=== PATIENT | male | born 1960 | race Caucasian/White ===

== ENCOUNTER 2017-09-18 14:55 | Inpatient (IN) | payer OTHER, SELFPAY ==
[2017-09-18] VITALS (9 sets, daily range): BP systolic 139–164; BP diastolic 90–103; PULSE 53–64; RESP 13–18; TEMP 36.7–36.9; O2SAT 93–98; BMI 25.7; BMI 25.0; BMI 25.1
--- NOTE | 2017-09-18 15:02 | EKG12_ITS ---
Test Reason : CP Blood Pressure : / mmHG Vent. Rate : 055 BPM Atrial Rate : 055 BPM P-R Int : 174 ms QRS Dur : 102 ms QT Int : 512 ms P-R-T Axes : 051 010 072 degrees QTc Int : 489 ms Sinus bradycardia Prolonged QT Abnormal ECG Confirmed by CHELO CAPPS, UMA ([id number]), society editor PARISH GUERRA ([id number] on 09/22/2017 2:24:02 PM Referred By: CHAVEZ Confirmed By:UMA WHITNEY MD
--- NOTE | 2017-09-18 15:19 | CT_ITS ---
STUDY: CT BRAIN WITHOUT CONTRAST REASON FOR EXAM: Male, 57 years old. Left facial droop. RADIATION DOSAGE (If Supplied By Facility): CTDIvol = ( 44.99 ) mGy, DLP = ( 796.11 ) mGycm TECHNIQUE: Transaxial CT imaging of the brain was performed without administration of intravenous contrast material. Individualized dose optimization techniques were used for this CT. COMPARISON: None. FINDINGS: Normal soft tissue structures. Normal calvarium. Normal size ventricles and extra-axial spaces for the patient's age. Normal white matter tracts of the cerebral hemispheres. Normal basal ganglia and thalami. Normal brainstem. Normal cerebellum. There is no intracranial hemorrhage. There are no findings of an acute ischemic infarction. Normal visualized paranasal sinuses. CT/Brain/Head without Contrast IMPRESSION: Normal unenhanced CT scan of the brain. Electronically Signed: Zhen James MD at 17:19 EST , Service support ,
--- NOTE | 2017-09-18 15:20 | RAD_ITS ---
STUDY: X-RAY CHEST REASON FOR EXAM: Male, 57 years old. Left facial droop. TECHNIQUE: Single frontal view of the chest. COMPARISON: None. FINDINGS: The lungs are clear and expanded. There is no demonstrated pleural abnormality. Normal size heart. Normal mediastinum and rahul. Normal visualized pulmonary arteries. Normal visualized aortic arch and descending thoracic aorta. Normal visualized thoracic spine. Normal visualized ribs, clavicles, and shoulders. There is no demonstrated abnormality of the visualized soft tissue structures of the upper abdomen. RAD/Chest 1 View (Portable) IMPRESSION: Normal x-ray examination of the chest. Electronically Signed: Zhen James MD at 16:12 EST , Service support ,
[2017-09-18 15:26] LABS: Bedside Glucose 76 mg/dL (70-110)
[2017-09-18 15:28] LABS: Absolute Lymphocyte Count 1.41 X10^3/ul (0.83-4.51); Absolute Neutrophil Count 6.2 X10^3/uL (2.0-7.7); Basophil# 0.08 X10^3/uL; Basophil% 0.9 % (0-1); Eosinophil# 0.33 X10^3/uL; Eosinophils% 3.8 % (0-5); Hematocrit 42.6 % (40-54); Hemoglobin 14.9 g/dl (13.0-16.5); Lymphocyte # 1.41 X10^3/ul (4.0); Lymphocyte % 16.4 % (19-41); Mean Corpuscular Hgb 30.8 pg (27.0-32.0); Mean Corpuscular Volume 88.2 fL (80-94); Mean Platelet Vol. 9.8 fl (6.2-12.0); Monocyte# 0.56 X10^3/uL; Monocyte% 6.5 % (0-10); Neutrophil # 6.18 X10^3/uL (2.7-7.7); Neutrophil % 71.9 % (47-70); Platelet Count 335 K/mm3 (150-450); RBC Distribution Width CV 13.1 % (11.6-14.6); RBC Distribution Width SD 41.9 fl (35.1-43.9); Red Blood Count 4.83 M/mm3 (4.6-6.2); White Blood Count 8.6 K/mm3 (4.4-11.0)
[2017-09-18 15:30] LABS: POSITIVE COUNT NO; POSITIVE DIFFERENTIAL NO; POSITIVE MORPHOLOGY NO
[2017-09-18 15:37] LABS: International Normalized Ratio 1.1; Prothrombin Time (Protime)PT. 13.4 SECONDS (11.7-14.9)
[2017-09-18 15:38] LABS: Partial Thromboplast Time 28.1 Seconds (24.1-36.2)
[2017-09-18 15:46] LABS: Anion Gap 6 (5-15); BUN 23 mg/dL (7-18); BUN/Creat Ratio 18.9 RATIO (10-20); Calcium,Total 8.5 mg/dL (8.5-10.1); Chloride 104 mmol/L (98-107); Creatinine, Serum 1.22 mg/dL (0.70-1.30); EST Glomerular Filtration Rate 65 mL/min (>60); Est Glom Filt Rate - Afr Amer 78 mL/min (>60); Estimated Creatinine Clearance 73.68 ml/min; Glucose 77 mg/dL (74-106); Potassium 3.7 mmol/L (3.5-5.1); Sodium Level 139 mmol/L (136-145)
--- NOTE | 2017-09-18 16:05 | ED.DCSUM_ITS ---
- ER Visit Summary Date of Service: 09/18/17 Chief Complaint: [] Concern for left facial droop walking leaning to the left History of Present Illness: The patient is a 57 M [] chronic hip pain reports he basically went to bed feeling fine woke a few hours later than normal and the family noticed she had left facial droop stuttering speech and kept falling to the left when he walked. This was noticed around 11 AM he was brought to the emergency department around 3 PM his facial droop and his speech symptoms have resolved his listing to the left is also markedly improved the patient denies headache no 6 paresthesias chest pain abdominal pain he has no history of MO PE DVT stroke or seizure he does take Ultram for chronic left hip pain Physical Examination: [] L signs are within normal range she has no obvious facial droop his speech is clear and stable no aphasia no dysarthria his lungs are clear heart tones are normal abdomen soft nontender upper lower extreme is normal he has normal motor normal sensory neural cerebellar function his vision is normal he can stand and walk with no obvious ataxia but he feels as if he is moving toward the left when he walks his NIH is 0 on arrival Test Results: [] Emergency Department Course and Treatment: [] CT labs EKG are generally unremarkable see those reports he remained stable here his NIH remains 0 The above given the difficulty with speech stuttering nature, facial droop the possibility of TIA certainly with the family they understand the need for admission further management, with the hospitalist will admit for further management Treatment Plan: [] Disposition: [] Admit stable Impression: [] Facial droop slurry speech trouble walking concern for TIA This note was generated with [employer] dictation software. It may contain incorrect words, spelling, and punctuation that were not noted in review of the chart prior to signing ED Disposition - Plan for ED Patient: Chief Complaint: Neuro S/Sx Referrals: Juan Miguel Howard MD [Primary Care Provider] -
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
--- NOTE | 2017-09-18 18:47 | ECHOD_ITS ---
Reason For Study: TIA/CVA Procedure This was a 2D Doppler, Color Flow transthoracic echocardiogram. Exam performed portable in patient room. Left Ventricle Normal size and thickness. The estimated ejection fraction is 65 %. Stage 1 diastolic dysfunction. No regional wall motion abnormalities noted. Right Ventricle Normal size and thickness. Normal systolic function. Atria Normal left atrium. Normal right atrium. Normal atrial septum. Saline contrast study demonstrates trivial right to left interatrial shunt. Mitral Valve The mitral valve is structurally normal. No prolapse or stenosis seen. Trivial mitral valve insufficiency. Tricuspid Valve Normal tricuspid valve. Trivial tricuspid valve insufficiency. Right ventricular systolic pressure estimated to be 28 mmHg. Aortic Valve Normal aortic valve. Trisinus/trileaflet aortic valve. Trivial aortic valve insufficiency. Pulmonic Valve Normal pulmonic valve. Great Vessels Normal aortic root. Normal arch. Normal inferior vena cava. Inferior vena cava collapse with sniff. Pericardium/Pleural No pericardial effusion. Medication Performed a rapid injection of agitated mix of 9 cc saline and 1cc air to assess for atrial septal defect. MMode/2D Measurements & Calculations LVIDd: 6.1 cm IVSd: 1.1 cm Ao root diam: 3.4 cm LVIDs: 4.5 cm LVPWd: 1.1 cm LA dimension: 4.1 cm RVDd: 3.1 cm FS: 25.8 % LAV(MOD-bp): 53.7 ml LAV(MOD-bp) Indexed: 25.5 ml/m2 LA A4 area: 14.1 cm2 RA A4 area: 15.1 cm2 LAV(MOD-sp2): 66.8 ml LAV(MOD-sp4): 36.3 ml Doppler Measurements & Calculations MV E max gualberto: 65.7 cm/sec Lat Peak E' Gualberto: 8.6 cm/sec Med Peak E' Gualberto: 5.6 cm/sec MV A max gualberto: 71.3 cm/sec E/E' lat: 7.6 E/E' med: 11.7 MV E/A: 0.92 Ao V2 max: 137.8 cm/sec LV V1 max: 92.1 cm/sec PA V2 max: 100.2 cm/sec Ao max P.6 mmHg LV V1 max P.4 mmHg Ao V2 mean: 96.9 cm/sec Ao mean P.1 mmHg Ao V2 VTI: 27.3 cm TR max gualberto: 240.8 cm/sec TR max P.2 mmHg Interpretation Summary The estimated ejection fraction is 65 %. Trivial tricuspid valve insufficiency. Trivial mitral valve insufficiency. Stage 1 diastolic dysfunction. Right ventricular systolic pressure estimated to be 28 mmHg. Saline contrast study demonstrates trivial right to left interatrial shunt. There is no comparison study available. Ordering Physician: aDvid Osborne Referring Physician: Juan Miguel Howard Performed By: Cassidy Santana RDCS, RVT
--- NOTE | 2017-09-18 18:47 | MRI_ITS ---
STUDY: MRI BRAIN WITHOUT CONTRAST REASON FOR EXAM: Male, 57 years old. Left-sided facial droop. TECHNIQUE: Standardized multiplanar fat and water weighted pulse sequences were obtained. COMPARISON: CT of the head dated September 08, 2017. FINDINGS: There is mild cerebral atrophy with widening of the extra-axial spaces and ventricular dilatation. There are multiple white matter hyperintensities, distributed throughout the deep white matter tracts of the cerebral hemispheres, consistent with moderate chronic white matter ischemic changes. There is a well-circumscribed focus of restricted diffusion within the anterior medial right thalamus consistent with acute infarct. Normal T2* images of the brain without demonstrated susceptibility artifact. There is no demonstrated hemosiderin stain. There are prominent perivascular spaces (PVS) involving the basal ganglia. There is abnormal signal within the medial right thalamus corresponding to area of acute infarct. The left thalamus has a normal appearance. There is no extra-axial fluid accumulation. Normal flow voids within the major intracranial circulation suggesting patency by spin echo criteria. Normal sella turcica, pituitary gland, infundibular stalk, optic chiasm and hypothalamus. Normal tectal plate and pineal gland. Normal midbrain, meryl and medulla. There are mild involutional changes of the cerebellum. Normal basal cisterns. There is moderate chronic otomastoiditis of the left temporal bone. Normal bilateral internal auditory canals. No demonstrated orbital abnormality, within the constraints of a routine brain study. There is extensive bilateral maxillary sinus disease with what appears to be both chronic and acute changes. Air-fluid levels appear to be within the maxillary sinuses. There is also opacification of most of the ethmoid sinuses. There is moderate mucoperiosteal thickening within the right frontal sinus and mild mucoperiosteal thickening in the left frontal sinus. There is mucosal thickening within bilateral sphenoid sinuses. Normal calvarium and skull base. Normal visualized soft tissue structures. There are degenerative changes of the anterior atlantoaxial articulation. MRI/Brain without Contrast IMPRESSION: 1. Involutional changes of the brain, as described above. 2. Acute infarct involving the right thalamus. 3. Extensive leon paranasal sinus disease. N.B. : The above information has been verbally conveyed by Jina Willson MD to Dr. Osborne, Covering Physician, on 09/19/2017 10:31:05 (ET). Electronically Signed: Jina Willson MD at 10:24 EST , Service support , N.B. : The above information has been verbally conveyed by Jina Wilslon MD to Dr. Osborne, Covering Physician, on 09/19/2017 10:31:05 (ET).
[2017-09-18 19:25] LABS: Thyroid Stim Hormone (TSH) 0.35 uIU/mL (0.358-3.74)
[2017-09-18 19:46] LABS: Alcohol, Blood (Medical)-Serum < 3.0 mg/dL
[2017-09-18] MEDS: Clopidogrel Bisulfate 75 MG Tablet PO (20:47)
[2017-09-18] MEDS: 0.9% Normal Saline 1,000 ML 100 ML IV (20:47)
[2017-09-18] MEDS: Atorvastatin Calcium 80 MG Tablet PO (21:21)
[2017-09-18] MEDS: Famotidine 20 MG Tablet PO (21:21)
[2017-09-18] MEDS: Acetylcysteine (Mucomyst Oral) 20% SOLN 1200 MG PO (21:22)
[2017-09-19] VITALS (12 sets, daily range): BP systolic 140–177; BP diastolic 82–110; PULSE 55–66; RESP 16–18; TEMP 36.4–36.8; O2SAT 96–100; BMI 25.0
[2017-09-19 00:16] LABS: Bedside Glucose 128 mg/dL (70-110)
[2017-09-19] MEDS: 0.9% Normal Saline 1,000 ML 100 ML IV (06:05)
[2017-09-19 06:16] LABS: Bedside Glucose 82 mg/dL (70-110)
[2017-09-19 07:17] LABS: Cholesterol 138 mg/dL (200); High Density Lipoprotein 30 mg/dL; T4 Free Direct 1.09 ng/dL (0.76-1.46); Thyroid Stim Hormone (TSH) 0.81 uIU/mL (0.358-3.74); Triglycerides 74 mg/dL; Very Low Density Lipoprotein 15 mg/dL (5-40)
[2017-09-19] MEDS: Acetylcysteine (Mucomyst Oral) 20% SOLN 1200 MG PO ×2 (08:25→21:05)
[2017-09-19] MEDS: Famotidine 20 MG Tablet PO ×2 (08:25→21:05)
[2017-09-19] MEDS: Clopidogrel Bisulfate 75 MG Tablet PO (08:25)
[2017-09-19 08:59] LABS: Amphetamine Urine VISTA NEGATIVE (<1000 ng/mL); Barbiturate Urine VISTA NEGATIVE (< 200 ng/mL); Benzodiazepine Urine VISTA NEGATIVE (< 200 ng/mL); Cocaine Urine VISTA NEGATIVE (< 300 ng/mL); Ecstacy Urine VISTA NEGATIVE (< 500 ng/mL); Methadone Urine VISTA NEGATIVE (< 300 ng/mL); PCP Urine VISTA NEGATIVE (< 25 ng/mL); THC Urine VISTA NEGATIVE (< 50 ng/mL); Vista UDS pH Range 6
--- NOTE | 2017-09-19 12:53 | PN_ITS ---
Patient Problems: Active and Suspected Problems TIA (transient ischemic attack) (Acute) Subjective: Seen and examined in the morning, Radiologist called me for acute right thalamic infarct about 1 cm in size. MRI of brain and CT angiogram discussed with the neurologist Dr. Brown. 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 Discussed with the business support specialist Dr. Valdez. Vitals/I&O's: Vital Signs Temp Pulse Resp BP Pulse Ox 98.1 F 65 18 153/88 H 98 09/19/17 12:05 09/19/17 12:05 09/19/17 12:05 09/19/17 12:05 09/19/17 12:05 Oxygen Delivery Method Room Air Weight: 190 lb Body Mass Index (BMI) 25.0 Intake and Output for Last 24 Hours 09/17/17 09/18/17 09/19/17 23:59 23:59 23:59 Intake Total 2158 Balance 2158 General: Alert, Oriented x3, Cooperative HEENT: Atraumatic, PERRLA, EOMI, Normocephalic Neck: Supple, No JVD, Negative Carotid Bruits Lungs: Clear to auscultation, Normal air movement, No rhonchi, No wheeze Cardiovascular: Regular Rhythm, Normal S1, Normal S2, No murmurs, Bradycardic - Sinus bradycardia, heart rate varies between 38-50/min. Abdomen: Bowel Sounds Present, Soft, Non Tender Extremities: No edema, Capillary Refill Less than 3 Seconds Skin: No rashes, No breakdown Musculoskeletal: No Tenderness to Palpation of Joints or Extremities Neurological: Cranial nerves II-XII grossly intact Psych/Mental Status: Normal Affect, Appropriate Laboratory Results 09/18/17 18:55: Troponin I < 0.02, TSH 0.35 L 09/18/17 18:55: Ethyl Alcohol < 3.0 09/19/17 00:03: POC Glucose 128 H 09/19/17 05:45: Triglycerides 74, Cholesterol 138, LDL Cholesterol 93, VLDL Cholesterol 15, HDL Cholesterol 30 L, TSH 0.81, Free T4 1.09 09/19/17 06:03: POC Glucose 82 Current Medications Acetaminophen (Tylenol) 650 mg PO Q4H PRN PRN PRN Reason: Headache/Temp>99F Acetaminophen (Tylenol) 650 mg RECTAL Q4H PRN PRN PRN Reason: Headache/Temp>99F Acetylcysteine (Mucomyst) 1,200 mg PO BID [facility] Stop: 09/20/17 10:01 Last Admin: 09/19/17 08:25 Dose: 1,200 mg Atorvastatin Calcium (Lipitor) 80 mg PO QHS [facility] Last Admin: 09/18/17 21:21 Dose: 80 mg Clopidogrel Bisulfate (Plavix) 75 mg PO DAILY [facility] Last Admin: 09/19/17 08:25 Dose: 75 mg Famotidine (Pepcid) 20 mg PO BID [facility] Last Admin: 09/19/17 08:25 Dose: 20 mg Heparin Sodium (Porcine) (Heparin Na) 5,000 unit SC BID [facility] Last Admin: 09/19/17 08:23 Dose: Not Given Sodium Chloride () 1,000 mls @ 100 mls/hr IV .Q10H [facility] Last Admin: 09/19/17 06:05 Dose: 100 mls/hr Sodium Chloride () 5 - 30 ml IV UD PRN PRN Reason: SALINE FLUSH Assessment/Plan Active and Suspected Problems TIA (transient ischemic attack) (Acute) The patient is a 57 year old M with no prior history of TIA/stroke, chronic right hip pain came to ER with sudden onset of left-sided facial droop, drifting to left side and slurred speech. 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 There is mild left facial droop. This happened around 11 AM and by this time he came to ER around 3 PM symptoms were resolved. Patient wants to go home. Patient also had transient drifting of his eyes towards left side that is not resolved. In ER NIH stroke scale 0. CT head does not show any acute change. Patient wants to go home. EKG shows normal sinus rhythm with slight prolonged QTC 49 ms. Previous EKG on May 2001 shows sinus bradycardia at 51 bpm. Blood pressure is elevated in the ER; 163/96 mmHg most rapidly undiagnosed hypertension, not on antihypertensive medication. 1. Acute right thalamic ischemic infarct: The patient is being admitted on the PCU floor. Patient's neurological he is a stable. His symptoms as mentioned above resolved. No headache. Brain MRI shows acute right thalamic infarct about 1 cm in size. Involutional changes of the brain with mild cerebral atrophy with widening of extra-axial spaces and ventricular dilatation. Moderate chronic white matter ischemic changes. Discussed with the neurologist Dr. Brown who agrees with the right thalamic ischemic infarct. CT angiogram of head and neck reported as no CT evidence of hemodynamically stenosis thrombosis or aneurysm. Dr. Brown feels that there is mild stenosis of right P1 segment. Continue on on stroke protocol with neuro checks , aspirin, statin, BP and glucose control as per stroke guidelines, PT, OT and speech/swallow evaluation. 2D echo tomorrow morning. Fasting lipid profile shows total cholesterol 138, LDL 93 and HDL 30. 2. Sinus bradycardia with sinus pauses: There were 2 missed heartbeat since yesterday. There is no compensatory pause. Discussed with the business support specialist Dr. Valdez who suggested YOAN tomorrow a.m. Keep the patient n.p.o after midnight. Cardiology consult ordered. Patient might need to be discharged on 30 day event monitor. Discussed with Dr. Koroma and said Dr. Haney will be doing YOAN tomorrow. 3. Undiagnosed hypertension: Currently blood pressure is within range of permissive hypertension as per guidelines of a stroke. May start lisinopril from tomorrow. 4 Right chronic hip arthritis: Patient is on tramadol, does not remember the dose. DVT prophylaxis: On heparin 5000 subcutaneous twice daily tomorrow a.m. and bilateral SCD. This note was generated with [employer] dictation software. Every effort was made to ensure accuracy, however computerized extras casting director mistakes may persist. MRI finding and CT images including fasting lipid profile, cardiac arrhythmia discussed with the patient and patient . Overall, patient agreed to stay. Patient admission status was changed to inpatient. Clinical Impression(s) from Imaging Studies Brain MRI 09/18/17 18:47 IMPRESSION: 1. Involutional changes of the brain, as described above. 2. Acute infarct involving the right thalamus. 3. Extensive leon paranasal sinus disease. Head CTA 09/19/17 18:47 IMPRESSION: No CTA evidence for hemodynamically significant stenosis, thrombosis or aneurysm. Electronically Signed: Jina Willson MD at 10:44 EST , Service support , Neck CTA 09/19/17 18:47 IMPRESSION: No CTA evidence for hemodynamically significant stenosis, thrombosis or dissection. Electronically Signed: Jina Willson MD at 11:01 EST , Service support , Laboratory Results 09/18/17 08:40: Urine Opiates Screen NEGATIVE, Urine Methadone Screen NEGATIVE, Ur Barbiturates Screen NEGATIVE, Ur Phencyclidine Scrn NEGATIVE, Ur Amphetamines Screen NEGATIVE, U Methamphetamin-MDMA NEGATIVE, U Benzodiazepines Scrn NEGATIVE, Urine Cocaine Screen NEGATIVE, U Cannabinoids Screen NEGATIVE, Ur Drug Screen Comment 09/18/17 18:55: Troponin I < 0.02, TSH 0.35 L 09/18/17 18:55: Ethyl Alcohol < 3.0 09/19/17 00:03: POC Glucose 128 H 09/19/17 05:45: Triglycerides 74, Cholesterol 138, LDL Cholesterol 93, VLDL Cholesterol 15, HDL Cholesterol 30 L, TSH 0.81, Free T4 1.09 09/19/17 06:03: POC Glucose 82 09/19/17 15:53: POC Glucose 127 H Code Visit Inpatient E&M: 41413 Subs Hosp L3
[2017-09-19 16:06] LABS: Bedside Glucose 127 mg/dL (70-110)
--- NOTE | 2017-09-19 18:47 | CT_ITS ---
STUDY: CTA NECK WITH CONTRAST REASON FOR EXAM: Male, 57 years old. RADIATION DOSAGE (If Supplied By Facility): CTDIvol = ( 26.15 ) mGy, DLP = ( 804.98 ) mGycm TECHNIQUE: CT angiography with multi-detector data acquisition was performed from the aortic arch to the skull base following intravenous administration of 100 ml of Isovue 370 contrast. MIP images were reconstructed from the axial data set. Post-processing of the angiographic images was performed, with multiplanar reformation and 3D reconstruction. Individualized dose optimization techniques were used for this CT. COMPARISON: None. FINDINGS: AORTIC ARCH: The thoracic aorta is tortuous. There is the usual origin of the great vessels. Normal origins of the brachiocephalic, left common carotid, and left subclavian arteries. RIGHT CAROTID ARTERIES: Normal right common carotid artery (CCA). There is mild atherosclerotic plaque formation with minimal narrowing of the right carotid bulb. There is mild atherosclerotic plaque formation of the origin of the right internal carotid artery with less than 50% cross sectional diameter stenosis. There is atherosclerotic tortuous elongation of the cervical portion of the right internal carotid artery. Normal origin of the right external carotid artery (ECA). LEFT CAROTID ARTERIES: There is atherosclerotic tortuous elongation of the left common carotid artery. There is mild atherosclerotic plaque formation with minimal narrowing of the left carotid bulb. There is mild atherosclerotic plaque formation of the origin of the left internal carotid artery with less than 50% cross sectional diameter stenosis. Normal visualized cervical portion of the left internal carotid artery. Normal origin of the left external carotid artery (ECA). VERTEBRAL ARTERIES: Normal bilateral vertebral arteries. Normal bilateral parotid glands. Normal bilateral baby attendant spaces. Normal bilateral parapharyngeal spaces. Normal bilateral carotid spaces. Normal bilateral sublingual and submandibular glands and spaces. Normal visualized nasopharynx. Normal retropharyngeal space. Normal perivertebral space. There are multiple calcifications within the palatine tonsils. This may be the result of previous inflammation. The visualized tongue, tongue base and oropharynx are normal. The visualized cervical lymph nodes (levels I-) are within normal size limits, and maintain normal morphology. There is no demonstrated solid or cystic mass lesion. There is no abnormal contrast enhancement. Normal epiglottis, bilateral vallecula and hypopharynx. The pre-epiglottic and paraglottic adipose spaces are normal. Normal visualized bilateral piriform sinuses, aryepiglottic folds, vocal cords, and arytenoid-cricoid articulations. Normal subglottic trachea. There is a nodule within the right lobe of thyroid that is a partially calcified. The thyroid nodule measures approximately 9.7 mm in greatest dimension. Normal visualized pulmonary apices. There is moderate mucoperiosteal thickening and fluid in the maxillary sinuses. There is multilevel degenerative changes of the cervical spine. CT/CTA Neck W/WO Contrast IMPRESSION: No CTA evidence for hemodynamically significant stenosis, thrombosis or dissection. Electronically Signed: Jina Willson MD at 11:01 EST , Service support ,
--- NOTE | 2017-09-19 18:47 | CT_ITS ---
STUDY: CTA OF THE BRAIN REASON FOR EXAM: Male, 57 years old. Left-sided facial droop. RADIATION DOSAGE (If Supplied By Facility): CTDIvol = ( 26.15 ) mGy, DLP = ( 804.98 ) mGycm TECHNIQUE: CT angiography was performed with a multi-detector CT scanner. Data acquisition was obtained from the skull base through the vertex following intravenous administration of 100 ml of Isovue-370. MIP images were reconstructed from the axial data set. Post-processing of the angiographic images was performed, with multiplanar reformation and 3D reconstruction. Individualized dose optimization techniques were used for this CT. COMPARISON: None. FINDINGS: Normal bilateral petrous carotid arteries. Normal right cavernous carotid artery with a normal supraclinoid bifurcation. Normal left cavernous carotid artery with a normal supraclinoid bifurcation. Normal right A1 segments of the anterior cerebral artery. Normal left A1 segments of the anterior cerebral artery. Normal intact anterior communicating artery (ACOM). Normal bilateral A2 segments of the anterior cerebral arteries. Normal right M1 and M2 segments of the middle cerebral arteries, with a normal M1 bifurcation. Normal left M1 and M2 segments of the middle cerebral arteries, with a normal M1 bifurcation. Normal right posterior communicating artery (PCOM). Normal left posterior communicating artery (PCOM). Normal bilateral vertebral arteries. Normal basilar artery with a normal basilar bifurcation. The visualized bilateral superior cerebellar (SCA) arteries are normal. Normal bilateral P1, P2 and visualized P3 segments of the posterior cerebral arteries. There is no demonstrated aneurysm of the [place]. There is no demonstrated abnormality of the visualized brain. CT/CTA Head W/WO Contrast IMPRESSION: No CTA evidence for hemodynamically significant stenosis, thrombosis or aneurysm. Electronically Signed: Jina Willson MD at 10:44 EST , Service support ,
[2017-09-19] MEDS: Atorvastatin Calcium 80 MG Tablet PO (21:06)
[2017-09-19 22:01] LABS: Bedside Glucose 88 mg/dL (70-110)
[2017-09-20] VITALS (11 sets, daily range): BP systolic 165–180; BP diastolic 90–103; PULSE 34–64; RESP 14–16; TEMP 36.4–36.6; O2SAT 98–100; BMI 25.0
[2017-09-20 04:45] LABS: Absolute Lymphocyte Count 1.69 X10^3/ul (0.83-4.51); Absolute Neutrophil Count 3.6 X10^3/uL (2.0-7.7); Basophil# 0.07 X10^3/uL; Basophil% 1.1 % (0-1); Eosinophil# 0.33 X10^3/uL; Eosinophils% 5.3 % (0-5); Hematocrit 41.1 % (40-54); Hemoglobin 13.9 g/dl (13.0-16.5); Lymphocyte # 1.69 X10^3/ul (4.0); Lymphocyte % 26.9 % (19-41); Mean Corp Hgb Conc 33.8 g/gl (32-36); Mean Corpuscular Hgb 29.6 pg (27.0-32.0); Mean Corpuscular Volume 87.6 fL (80-94); Mean Platelet Vol. 9.6 fl (6.2-12.0); Monocyte# 0.52 X10^3/uL; Monocyte% 8.3 % (0-10); Neutrophil # 3.64 X10^3/uL (2.7-7.7); Neutrophil % 57.9 % (47-70); Platelet Count 348 K/mm3 (150-450); RBC Distribution Width CV 12.8 % (11.6-14.6); RBC Distribution Width SD 39.9 fl (35.1-43.9); Red Blood Count 4.69 M/mm3 (4.6-6.2); White Blood Count 6.3 K/mm3 (4.4-11.0)
[2017-09-20 04:48] LABS: POSITIVE COUNT NO; POSITIVE DIFFERENTIAL NO; POSITIVE MORPHOLOGY NO
[2017-09-20 04:57] LABS: Anion Gap 6 (5-15); BUN 18 mg/dL (7-18); BUN/Creat Ratio 15.9 RATIO (10-20); Calcium,Total 8.1 mg/dL (8.5-10.1); Chloride 104 mmol/L (98-107); Creatinine, Serum 1.13 mg/dL (0.70-1.30); EST Glomerular Filtration Rate 71 mL/min (>60); Est Glom Filt Rate - Afr Amer 85 mL/min (>60); Estimated Creatinine Clearance 79.55 ml/min; Glucose 83 mg/dL (74-106); Potassium 3.8 mmol/L (3.5-5.1); Sodium Level 138 mmol/L (136-145)
[2017-09-20 05:17] LABS: International Normalized Ratio 1.1; Partial Thromboplast Time 27.4 Seconds (24.1-36.2); Prothrombin Time (Protime)PT. 13.6 SECONDS (11.7-14.9)
--- NOTE | 2017-09-20 05:55 | EKG12_ITS ---
Test Reason : AM EKG Blood Pressure : / mmHG Vent. Rate : 050 BPM Atrial Rate : 050 BPM P-R Int : 184 ms QRS Dur : 104 ms QT Int : 530 ms P-R-T Axes : 047 006 057 degrees QTc Int : 483 ms Sinus bradycardia Prolonged QT Abnormal ECG When compared with ECG of 18-SEP-2017 15:21, MANUAL COMPARISON REQUIRED, DATA IS UNCONFIRMED Confirmed by BRANDYN MANLEY ([id number]), map editor PARISH GUERRA ([id number]) on 09/23/2017 3:11:15 PM Referred By: DR VALDEZ Confirmed By:BRANDYN MANLEY
[2017-09-20 06:21] LABS: Bedside Glucose 77 mg/dL (70-110)
--- NOTE | 2017-09-20 10:29 | PCM.CONS.GEN ---
Reason for Consult Date of Consultation: 09/20/17 Reason for Consultation: CVA History of Present Illness: The patient is a 57 year old RIGHT HANDED white male presented with left sided weakness and slurred speech begining two days ago, now completely normal per pt. sx lasted about 12hrs and resolved. no previous history. allergic to asa and ibuprofen, rash on forehead, feet and nausea. nonsmoker. reports tells him he snores. naps on weekends. 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 last bp 140s systolic at primary care office, dosent check bp normally at home. per hosp notes:The patient is a 57 year old M with no prior history of TIA/stroke, chronic right hip pain came to ER with sudden onset of left-sided facial droop, drifting to left side and slurred speech. 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 There is mild left facial droop. This happened around 11 AM and by this time he came to ER around 3 PM symptoms were resolved. Patient wants to go home. Patient also had transient drifting of his eyes towards left side that is not resolved. In ER NIH stroke scale 0. CT head does not show any acute change. Patient wants to go home. Past Medical History Past Medical History (Chronic Problems): Chronic Problems Chronic right hip pain (Chronic) Hypertension (Chronic) Allergies aspirin Allergy (Verified 09/18/17 15:00) Swelling ibuprofen Allergy (Verified 09/18/17 18:54) Rash Home Medications: Ambulatory Orders Medication Instructions Recorded Tramadol HCl ER mg PO DAILY 09/18/17 Smoking Status: Never smoker Tobacco Use: Non-smoker Alcohol: None Drugs: None - *Family History Paternal History Items: No pertinent history Review of Systems Constitutional: Denies: Chills, Fever, Weight Change HEENT: Denies: Head Aches, Sinus Congestion, Sinus Drainage Cardiovascular: Denies: Chest Pain, Palpitations Respiratory: Denies: Cough, Shortness of breath at rest, Sputum production Gastrointestinal: Denies: Abdominal Pain, Nausea, Vomiting Genitourinary: Denies: Dysuria Musculoskeletal: Denies: Joint Pain, Joint Tenderness Skin: Denies: Rash, Wounds Neurological: Denies: Numbness, Tingling, Focal weakness Psychiatric: Denies: Anxiety, Depression, Homicidal Ideations, Suicidal Ideations Hematologic/ Lymphatic: Denies: Easy Bruising, Easy Bleeding Patient Problems: Active and Suspected Problems TIA (transient ischemic attack) (Acute) - Physical Exam General: Alert, Oriented x3, Cooperative HEENT: Atraumatic, PERRLA, EOMI, Normocephalic Neck: Supple, No JVD, Negative Carotid Bruits Lungs: Clear to auscultation, Normal air movement Cardiovascular: Regular rate, No murmurs Abdomen: Bowel Sounds Present, Soft, Non Tender Extremities: No edema, Capillary Refill Less than 3 Seconds Skin: No rashes, No breakdown Musculoskeletal: No Tenderness to Palpation of Joints or Extremities Neurological: Cranial nerves II-XII grossly intact Psych/Mental Status: Normal Affect, Appropriate Vital Signs Temp Pulse Resp BP Pulse Ox 36.4 C L 52 L 16 170/103 H 100 09/20/17 04:05 09/20/17 07:06 09/20/17 04:05 09/20/17 04:05 09/20/17 04:05 Oxygen Delivery Method Room Air Weight: 86.183 kg Body Mass Index (BMI) 25.0 Intake and Output for Last 24 Hours 09/18/17 09/19/17 09/20/17 23:59 23:59 23:59 Intake Total 2837 / 2837 300 / 300 Balance 2837 / 2837 300 / 300 Laboratory Tests Past 24 Hrs 09/20/17 09/20/17 09/20/17 04:32 04:32 04:32 WBC 6.3 RBC 4.69 Hgb 13.9 Hct 41.1 MCV 87.6 MCH 29.6 MCHC 33.8 RDW 12.8 RDW Differential 39.9 Plt Count 348 MPV 9.6 Immature Gran % (Auto) 0.500 Neut % (Auto) 57.9 Lymph % (Auto) 26.9 Miller % (Auto) 8.3 Eos % (Auto) 5.3 H Baso % (Auto) 1.1 H Absolute Neuts (auto) 3.6 Absolute Lymphs (auto) 1.69 Total Counted Not Reportable PT 13.6 INR 1.1 APTT 27.4 Sodium 138 Potassium 3.8 Chloride 104 Carbon Dioxide 28.0 Anion Gap 6 BUN 18 Creatinine 1.13 Estim Creat Clear Calc 79.55 Est GFR (MDRD) Af Amer 85 Est GFR (MDRD) Non-Af 71 BUN/Creatinine Ratio 15.9 Glucose 83 Calcium 8.1 L POC Glucose 09/20/17 09/19/17 09/19/17 06:18 21:10 15:53 POC Glucose 77 88 127 H mri reviewed, acute medial thalamic infarct Assessment/Plan Active and Suspected Problems TIA (transient ischemic attack) (Acute) small vessel right thalamic infarct, primary risk factor likely htn treat htn if bp remains high after 224 or if sbp>200 agree with plavix start statin outpt psg awiat echo sinus on tele ok to dc if above negative
--- NOTE | 2017-09-20 10:45 | CASEMGMT ---
Face to Face with patient for initial transition planning/care coordination assessment. ANAYELI SALGADO introduced self and role at [facility], pt voices understanding and consents to assessment at this time. Pt sitting up in bed in no distress at this time. Pt A/O x4 at this time and answers all questions appropriately at this time. Care providers, pharmacy, and demographics verified. See attached link. Pt voices no further concerns/needs at this time. Advised pt to ask for CM if any further questions/concerns/needs arise, voices understanding. PLAN[place] ANAYELI SALGADO
[2017-09-20] MEDS: Acetylcysteine (Mucomyst Oral) 20% SOLN 1200 MG PO (10:56)
[2017-09-20] MEDS: Clopidogrel Bisulfate 75 MG Tablet PO (10:56)
[2017-09-20] MEDS: Famotidine 20 MG Tablet PO (10:56)
--- NOTE | 2017-09-20 11:44 | CON.PCM_ITS ---
Problem List (1) Hypertension Status: Chronic (2) TIA (transient ischemic attack) Status: Acute Reason for Consult Date of Consultation: 09/20/17 Reason for Consultation: CVA, hypertension History of Present Illness: The patient is a 57 year old M with a long history of hypertension, no previous CVA, coronary disease, nondiabetic, non-smoker, no alcohol use, no previous medications, history of palpitations in his family who originally presented on the day of admission with progressively worsening difficulty walking, possible left-sided facial droop according to his , with associated dysarthria. The symptoms completely resolved. His initial CT scan was negative, but MRI today demonstrated a small acute CVA located in the right thalamus. From a cardiac standpoint he denied any chest pain, angina, shortness of breath or dyspnea on exertion. CTA of his neck was negative for significant thromboses. He presented quite hypertensive with blood pressure 160/103 which has remained persistent. She was started on Plavix. Echocardiogram is pending. EKG showed sinus bradycardia, no acute changes. [] Past Medical History Allergies/Adverse Reactions: Allergies aspirin Allergy (Verified 09/18/17 15:00) Swelling ibuprofen Allergy (Verified 09/18/17 18:54) Rash Home Medications: Ambulatory Orders Medication Instructions Recorded Tramadol HCl ER mg PO DAILY 09/18/17 Past Medical History (Chronic Problems): Chronic Problems Chronic right hip pain (Chronic) Hypertension (Chronic) - *Family History Paternal History Items: No pertinent history Smoking Status: Never smoker Tobacco Use: Non-smoker Alcohol: None Drugs: None Review of Systems - Review of Systems General: Denies: Fever, Night Sweats, Fatigue Cardiovascular: Denies: Chest Discomfort, Shortness of Breath, Orthopnea, PND, Peripheral Edema, Palpitations, Lightheadedness, Dizziness, Near Syncope, Syncope Respiratory: Denies: Cough, Sputum Production, Hemoptysis Gastrointestinal: Denies: Hematemesis, Hematochezia, Melena Genitourinary: Denies: Dysuria, Hematuria Skin: Denies: Rash Neurological: Reports: Decreased Coordination, Weakness Subjectve: Patient laying in bed, no acute distress. Objective: Vital Signs Temp Pulse Resp BP Pulse Ox 97.5 F L 52 L 16 170/103 H 100 09/20/17 04:05 09/20/17 07:06 09/20/17 04:05 09/20/17 04:05 09/20/17 04:05 Oxygen Delivery Method Room Air Weight: 190 lb Body Mass Index (BMI) 25.0 Intake and Output for Last 24 Hours 09/18/17 09/19/17 09/20/17 23:59 23:59 23:59 Intake Total 2837 / 2837 300 / 300 Balance 2837 / 2837 300 / 300 General: Awake, Alert, Oriented x 3 HEENT: PERRL, EOMI, Sclera Non Icteric Neck: Supple, Good ROM, No Lymph Node Enlargement Lungs: Clear to auscultation Cardiovascular: Regular Rhythm, Normal S1, Normal S2, No Murmurs, No Rubs, No Gallops Vascular: No Carotid Bruits, Normal Femoral Pulses, Normal Radial Pulses, Normal Dorsalis Pedal Pulse, Normal Posterior Tibial Pulses Abdomen: Bowel Sounds Present, Soft, Non Tender, No HSM, No Organomegaly Extremities: No Cyanosis, No Clubbing, No edema Neurological: No Focal Motor or Sensory Deficit 09/20/17 04:32: WBC 6.3, RBC 4.69, Hgb 13.9, Hct 41.1, MCV 87.6, MCH 29.6, MCHC 33.8, RDW 12.8, RDW Differential 39.9, Plt Count 348, MPV 9.6, Immature Gran % ( Auto) 0.500, Neut % (Auto) 57.9, Lymph % (Auto) 26.9, [place] % (Auto) 8.3, Eos % ( Auto) 5.3 H, Baso % (Auto) 1.1 H, Absolute Neuts (auto) 3.6, Total Counted Not Reportable 09/20/17 04:32: PT 13.6, INR 1.1, APTT 27.4 09/20/17 04:32: Sodium 138, Potassium 3.8, Chloride 104, Carbon Dioxide 28.0, Anion Gap 6, BUN 18, Creatinine 1.13, Est GFR (MDRD) Af Amer 85, Est GFR (MDRD) Non-Af 71, BUN/Creatinine Ratio 15.9, Glucose 83, Calcium 8.1 L Rhythm: Sinus bradycardia, no acute changes. No other arrhythmias noted. EKG: Sinus bradycardia, no acute changes. ECHO: Pending Stress Test: Cardiac Cath: PCI: CT Surgery: Holter monitor: EPS: PPM: CXR: Chest CT Scan: Assessment/Plan 1. Acute CVA: Patient has evidence of a small right thalamic infarct, and has been treated with Plavix as he is allergic to aspirin. His blood pressure appears to be fairly high, and neurology is recommended treatment to keep his systolic blood pressure less than 200. Given his high diastolic blood pressure , I believe he would benefit from low-dose hydrochlorothiazide 12.5 mg p.o. daily. We are awaiting an echocardiogram to evaluate his LV function. If his LV function and pulmonary pressures are normal, I would not recommend a stress test at this time as he is remained asymptomatic and has had no chest pain or angina. His carotid CTA demonstrates no significant carotid stenosis so would recommend canceling carotid ultrasound. In addition, his LDL is 93 and his HDL is 30. Lipitor. Repeat lipid profile and liver function test in 4-6 weeks time. 2. Sinus bradycardia: His sinus cardio precludes the use of beta-blockers to control his blood pressure. His bradycardia may be a result of his acute infarct and his hypertension. Will monitor for now. He has had no syncopal events. 3. Thank you very much for the opportunity to precipitate the cardiac care of your patient. Consultation time took place between 9 AM and 9:30 AM. The patient's echocardiogram is normal he may be discharged home and follow-up with his PCP going forward. Code Visit Inpatient E&M: 10263 Init Hosp L2
--- NOTE | 2017-09-20 17:14 | PCM.DC ---
- Discharge Diagnoses Current Active Problems: Current Active and Chronic Problems TIA (transient ischemic attack) (Acute) Chronic right hip pain (Chronic) Hypertension (Chronic) You will use the following diet at home:: Cardiac Discharge Activity: Return to Normal Activity Allergies/Adverse Reactions: Allergies aspirin Allergy (Verified 09/18/17 15:00) Swelling ibuprofen Allergy (Verified 09/18/17 18:54) Rash Medications to take at Discharge Tramadol HCl ER mg PO DAILY 09/18/17 Atorvastatin Calcium [Lipitor] 80 mg PO QHS #30 tab 09/20/17 Clopidogrel Bisulfate [Plavix] 75 mg PO DAILY 30 Days tab 09/20/17 Hydrochlorothiazide 12.5 mg PO DAILY #30 cap 09/20/17 The following prescriptions were given: Atorvastatin Calcium [Lipitor] 80 mg PO QHS #30 tab Clopidogrel Bisulfate [Plavix] 75 mg PO DAILY 30 Days tab Hydrochlorothiazide 12.5 mg PO DAILY #30 cap Primary Care Physician: Juan Miguel Howard MD [Primary Care Provider] - In 1 Week Proposed Discharge Date: 09/20/17
--- NOTE | 2017-09-20 17:15 | PCM.DC.SUM ---
Discharge Date and Diagnosis Date of Admission: 09/18/17 Date of Discharge: 09/20/17 - Primary Discharge Diagnosis Active and Suspected Problems TIA (transient ischemic attack) (Acute) - Secondary Discharge Diagnosis Chronic Problems Chronic right hip pain (Chronic) Hypertension (Chronic) Hospital Course and Treatment Imaging Results: 09/21/17 05:55 Echo Transesophageal (YOAN) [ECHO] AM (NON MEDS) Summary of Care Provided: Mr. Norm Zarate is a 57 year old M with a long history of hypertension, coronary disease, history of palpitations in his family who originally presented on the day of admission with progressively worsening difficulty walking, left-sided facial droop and dysarthria. Was seen in the emergency room and a CT scan was done there was none acute, he was admitted to the hospital for stroke workup. Neurologist was consulted of the brain demonstrated a small acute CVA located in the right thalamus. his Echocardiogram was unremarkable. His symptoms completely resolved and was discharged home on Plavix, statin and hydrochlorothiazide for blood pressure control. History was discharged home in a stable condition symptom-free. Physical exam at the time of discharge; vital signs were stable. He was alert and oriented to time place and person. He did not appear to be any form of distress. S1 and S2 heard no murmur or gallop Lung exam was clear to auscultation with no adventitious sounds. Abdomen was soft nontender with normal bowel sounds. extremity exam did not reveal any edema, palpable pulses bilaterally. Neurologic exam was grossly intact. Discharge Diet: No Restrictions Discharge Activity: Return to Normal Activity Home Medications: Medications to take at Discharge Tramadol HCl ER mg PO DAILY 09/18/17 Atorvastatin Calcium [Lipitor] 80 mg PO QHS #30 tab 09/20/17 Clopidogrel Bisulfate [Plavix] 75 mg PO DAILY 30 Days tab 09/20/17 Hydrochlorothiazide 12.5 mg PO DAILY #30 cap 09/20/17 Following Prescrptions Were Given to Patient: Atorvastatin Calcium [Lipitor] 80 mg PO QHS #30 tab Clopidogrel Bisulfate [Plavix] 75 mg PO DAILY 30 Days tab Hydrochlorothiazide 12.5 mg PO DAILY #30 cap Primary Care Physician: Juan Miguel Howard MD [Primary Care Provider] - In 1 Week Disposition: Home Patient Condition:: Good Meaningful Use Info Meaningful Use Diagnoses (Choose all that apply): None applicable Code Visit Inpatient E&M: 79879 Disch Hosp
== END 2017-09-20 17:56 | disposition home or self-care (01) | DRG 66 ==
LOC: ED 15:45 → PCU 18:07
PROVIDERS: Admitting Provider Internal Medicine; Emergency Provider Emergency Medicine; Family Provider Family Medicine; PCP Family Medicine; Visit Provider Internal Medicine
DX: I63.9 Cerebral infarction, unspecified (principal); I10 Essential (primary) hypertension; R29.810 Facial weakness; R47.81 Slurred speech; M16.10 Unilateral primary osteoarthritis, unspecified hip; R00.1 Bradycardia, unspecified
CPT/HCPCS: 36415; 70450; 70496; 70498; 70551; 71045; 80048; 80061; 80307; 80320; 82962; 84439; 84443; 84484; 85025; 85610; 85730; 92522; 93005; 93306; 97161; 97166; 99285; J7030; J7040; Q9967; A4216; G0480

== ENCOUNTER → 2017-09-28 10:39 | Outpatient (CLI) | payer OTHER, SELFPAY | PROVIDERS: Family Provider Family Medicine; PCP Family Medicine; Visit Provider Family Medicine | DX: R00.2 Palpitations (principal) | CPT/HCPCS: 93225; 93226 ==